=== PATIENT | male | born 1955 | race Caucasian/White ===

== ENCOUNTER → 2016-11-10 | Outpatient (CLI) | payer BC | LOC: RAD 10:18 | PROVIDERS: ATTEND Family Medicine | DX: R91.1 Solitary pulmonary nodule (principal) | CPT/HCPCS: 76536 ==

== ENCOUNTER → 2016-11-18 | Outpatient (CLI) | payer BC | LOC: RAD 08:16 | PROVIDERS: ATTEND Internal Medicine Nephrology | DX: I10 Essential (primary) hypertension (principal); N18.9 Chronic kidney disease, unspecified; N28.1 Cyst of kidney, acquired | CPT/HCPCS: 76770 ==

== ENCOUNTER 2016-12-17 07:20 | Day surgery (SDC) | payer BC ==
[2016-12-17] VITALS (9 sets, daily range): BP systolic 93–139; BP diastolic 39–87
[~2016-12-17] VITALS: Ht 180.3 cm; Wt 77.7 kg
[~2016-12-17 07:20] MED LIST: AMLO10TA82 PO; ATOR20TA PO; HYDR-3811 PO; LACTATED RINGERS 1,000 ML IV SCH; LISI1TAB8 PO; LSNP20T PO; MTP25TSR PO; NEBI10TA PO; NEBI5TAB8 GT; SODIUM CHLORIDE FLUSH 3 ML SYR IV PRN
--- OUTSIDE RECORDS SUMMARY | 2016-12-17 07:24 | XMS REPORT | Summary of Care ---
Author Author [facility] Address [address] [place] [address] Phone Care Team Providers Care Roofer Metal Name Role Phone Doyle Kenyon, User Unavailable Unavailable Frankie Dumont Unavailable Unavailable Functional Status Name Dates Details Functional status health issues are not documented Status: Name Dates Details Cognitive status health issues are not documented Status: Problems Name Dates Details CKD (chronic kidney disease) (585.9, N18.9) Status: Active HTN (hypertension) (401.9, I10) Status: Active Medications Name Dates Details Medication not documented Allergies and Adverse Reactions Name Dates Details No Known Drug Allergies (Allergy) Status: Active Procedures Procedure Dates Details RENAL PROFILE 1240 Ordered: 10-Nov-2016 HEMOGRAM 7305 Ordered: 10-Nov-2016 Immunization Name Dates Details Immunizations not documented Social History Name Dates Details Unknown if ever smoked Vital Signs Date Test Result Details 10-Nov-2016 13:03 BP Systolic 130 mm[Hg] Status: Comments: Location: ; Position: BP Diastolic 79 mm[Hg] Status: Comments: Location: ; Position: Heart Rate 72 /min Status: Comments: Location: ; Weight 180 lb Status: Results Date Description Value Details 10-Nov-2016 14:19 C REACTIVE PROTEIN, CRP 2030 C REACTIVE PROTEIN 0.3 mg/dL Range: 0.0-0.9 14:19 RENAL PROFILE 1240 SODIUM 133 mmol/L Range: 133-144 POTASSIUM 4.4 mmol/L Range: 3.5-5.1 CHLORIDE 98 mmol/L Range: 98-110 CARBON DIOXIDE 23.7 mmol/L Range: 23.0-33.0 ANION GAP 11 mmol/L Range: 6-16 BUN 21 mg/dL (Above high threshold) Range: 7-18 CREATININE, SERUM 1.55 mg/dL (Above high threshold) Range: 0.70-1.30 EST GFR, 56 ml/min (Below low threshold) Range: >60 EST GFR, NON-AFR HAITIAN 46 ml/min (Below low threshold) Range: >60 Comments: EST GFR is reported in ml/min per 1.73 m2 of body surface area. ----- BUN:CREATININE RATIO 14 GLUCOSE 97 mg/dL Range: 70-100 ALBUMIN 4.1 g/dL Range: 3.4-5.0 PHOSPHORUS 2.9 mg/dL Range: 2.6-4.7 CALCIUM 9.2 mg/dL Range: 8.5-10.1 14:19 CREATINE KINASE 1300 CREATINE KINASE 212 U/L Range: 39-308 16:32 RHEUMATOID FACTOR, RA, Serum 2014 RHEUMATOID FACTOR POSITIVE (Abnormal) Range: Negative RA TITER 20 IU/mL (Abnormal) Range: <10 12-Nov-2016 09:30 Protein Elec + Interp, Serum [id number] Comments: Testing performed at: [webtide] [facility] [address], [place], [address], , Debone Supervisor: RODRÍGUEZ Douglas MD PROTEIN, TOTAL, SERUM 7.7 g/dL Range: 6.0-8.5 ALBUMIN 4.3 g/dL Range: 2.9-4.4 CTUOM-9-NZYBHKPG 0.2 g/dL Range: 0.0-0.4 JQBOS-1-ZEFYRVRY 0.7 g/dL Range: 0.4-1.0 BETA GLOBULIN 1.2 g/dL Range: 0.7-1.3 GAMMA GLOBULIN 1.3 g/dL Range: 0.4-1.8 M-SPIKE Not Observed g/dL Range: Not Observed GLOBULIN, TOTAL 3.4 g/dL Range: 2.2-3.9 A/G RATIO 1.3 Range: 0.7-1.7 PLEASE NOTE: Comment Comments: Protein electrophoresis scan will follow via computer,mail, or crop grain or livestock farm manager delivery.----- P E INTERPRETATION, S Comment Comments: The SPE pattern appears essentially unremarkable. Evidenceof monoclonal protein is not apparent.----- 09:30 Immunofixation, Serum [id number] Comments: Testing performed at: [[email or web address]] [facility], [address] [place] [address], [place], [address], Phone: , Debone Supervisor: RODRÍGUEZ Douglas MD IMMUNOFIXATION RESULT, SERUM Comment Comments: An apparent normal immunofixation pattern.----- IMMUNOGLOBULIN G, QN, SERUM 1123 mg/dL Range: 700-1600 IMMUNOGLOBULIN A, QN, SERUM 409 mg/dL (Above high threshold) Range: 90- 386 IMMUNOGLOBULIN M, QN, SERUM 59 mg/dL Range: 20-172 13:16 ANALYZER PROFILE 3031 ANTINUCLEAR ANTIBODIES 53 AU/mL Range: 0-120 Comments: REFERENCE VALUE INTERPRETATION 0-99 U/mL - NEGATIVE 100 - 120 U/mL - EQUIVOCAL >120 U/mL - POSITIVE--- -- SJOGREN'S SSA AB 24 AU/mL Range: 0-120 SJOGREN'S SSB AB 7 AU/mL Range: 0-120 SHAW AB 44 AU/mL Range: 0-120 HEAT TREAT PULLER AB 26 AU/mL Range: 0-120 ANTI DNA 0 IU/mL Range: 0-120 CENTROMERE AB 13 AU/mL Range: 0-120 HISTONE AB 15 AU/mL Range: 0-120 Plan of Care Name Dates Details Planned Observations Planned Goals not documented Planned Encounters Appointment; Provider: Arian Dupont M.D. On 12:45 Instructions Name Dates Details Instructions not documented Encounters Appointment; Arian Dupont M.D. Encounter Diagnosis: Problem not documented On 10-Nov-2016 13:00
[2016-12-17] MEDS ORDERED: PROPOFOL 20 ML IV ONE ×2 (08:01→09:13)
[2016-12-17] MEDS ORDERED: MIDAZOLAM 2 MG/2 ML (VERSED) VIAL ONE (08:01)
[2016-12-17] MEDS ORDERED: ALFENTANIL 500 MCG/ML (ALFENTA) 5 ML AMP IV ONE (08:01)
[2016-12-17] MEDS ORDERED: GLUCAGON EMERGENCY 1 MG/KIT ONE (09:04)
--- NOTE | 2016-12-17 12:45 | OPERATIVE REPORT ---
DATE OF OPERATION: 12/17/2016 PRE-OPERATIVE DIAGNOSIS: Screening colonoscopy POST-OPERATIVE DIAGNOSIS: 1. Colon polyps. 2. Sigmoid diverticulosis. OPERATIVE PROCEDURE: Total colonoscopy with polypectomies (endoscopic mucosal resection and cautery forceps). SURGEON: Yg Matthews MD ANESTHESIA: Monitored anesthesia care FINDINGS: 1. The bowel prep was good. 2. There were numerous polyps seen, including a cluster at approximately 35 to 40 cm. Most of these were able to be removed, but a couple at 35 cm was difficult to visualize due to the angulation of the colon and were left behind. 3. There were numerous diverticula seen throughout the sigmoid colon. INDICATION: The patient is a 61-year-old referred by Dr. Dumont for colonoscopy screening. He has not had any bowel habit changes and his family history is negative for colorectal cancer. DESCRIPTION OF PROCEDURE: The patient was informed of the risks and benefits and agreed to proceed. He was placed in the left lateral decubitus position and was administered IV sedation. When properly sedated a rectal exam was performed, which was normal. The lighted endoscope then passed into the rectum and as the sigmoid colon was entered, a few of these polyps were noted. Saline lift and cautery snare were used to remove a very large one, which had to be brought out at the tip of the scope. There was also a smaller one next to this that was removed with cautery forceps. The scope was advanced along the colon to the cecum where the ileocecal valve and the appendiceal orifice were seen. The colonoscope was then slowly withdrawn through the ascending and transverse. The descending colon was visualized and at 50 cm a flat, redundant, flesh-colored lesion was noted with a polyp at the top. Initially I removed the polyp using the saline-lift technique, but then it was apparent that the rest of this lesion either contained other polyps or may have represented a polyp in and of itself. It was ensnared and appeared to be on a stalk, as the snare was able to divide it fairly easily. The lesion was removed at the tip of the scope and the endoscope was then brought back into that location. The resulting polypectomy site was clipped with an endoscopic clip. The scope was then brought through the sigmoid colon where an additional polyp was removed using the saline-lift technique. I was not able to visualize any of the other polyps, but it did appear that a couple were likely left there and will need to be retrieved later. The rectum appeared normal on regular view and retroflexion. The scope was removed completing the procedure. The patient tolerated the procedure without complications. I will recommend a short-term follow up colonoscopy in 1 year.
== END 2016-12-17 12:47 | disposition home or self-care (01) ==
LOC: ASC 07:20
PROVIDERS: ATTEND Surgery
DX: Z12.11 Encounter for screening for malignant neoplasm of colon (principal); D12.5 Benign neoplasm of sigmoid colon; D12.4 Benign neoplasm of descending colon; K57.30 Diverticulosis of large intestine without perforation or abscess without bleeding; I10 Essential (primary) hypertension; G47.33 Obstructive sleep apnea (adult) (pediatric)
CPT/HCPCS: 45381; 45385; J1610; J2250; J7120